=== PATIENT | female | born 1940 | race Caucasian/White ===

== ENCOUNTER 2017-01-02 17:34 | Outpatient (CLI) | payer MEDICARE ==
[2017-01-02 13:30] LABS: BASOPHILS # (AUTO) 0.1 10^3/uL (0.0-0.1); BASOPHILS % (AUTO) 1.2 %; EOSINOPHILS # (AUTO) 0.1 10^3/uL (0.0-0.7); EOSINOPHILS % (AUTO) 1.5 %; HCT - HEMATOCRIT 30.5 % (37.0-47.0); HGB - HEMOGLOBIN 10.1 g/dL (12.0-16.0); LYMPHOCYTES # (AUTO) 0.6 10^3/uL (1.5-3.5); LYMPHOCYTES % (AUTO) 10.8 %; MEAN CORPUSCULAR HEMOGLOBIN 29.4 pg (27.0-31.0); MEAN CORPUSCULAR HGB CONC 33.1 g/dL (32.0-36.0); MEAN CORPUSCULAR VOLUME 88.7 fL (81.0-99.0); MEAN PLATELET VOLUME 7.5 fL (7.9-10.8); MONOCYTES # (AUTO) 0.5 10^3/uL (0.0-1.0); MONOCYTES % (AUTO) 9.1 %; NEUTROPHILS # (AUTO) 4.3 10^3/uL (1.5-6.6); NEUTROPHILS % (AUTO) 77.4 %; RED BLOOD COUNT 3.44 10^6/uL (4.20-5.40); RED CELL DISTRIBUTION WIDTH 14.5 % (12.0-15.0); UNCORRECTED WHITE BLOOD COUNT 5.5 x10^3/uL; WHITE BLOOD COUNT 5.5 x10^3/uL (4.8-10.8)
[2017-01-02 13:38] LABS: ALBUMIN/GLOBULIN RATIO 1.3 (1.0-2.2); BILIRUBIN,TOTAL 0.4 mg/dL (0.2-1.0); BUN - BLOOD UREA NITROGEN 15 mg/dL (6-20); CALCIUM 8.5 mg/dL (8.5-10.3); CARBON DIOXIDE - CO2 25 mmol/L (21-32); CHLORIDE 103 mmol/L (101-111); CHOL/HDL RATIO 2.8 (<4.4); CHOLESTEROL 171 mg/dL; CREATININE 0.6 mg/dL (0.4-1.0); GFR - MDRD 97 (>89); GLUCOSE 101 mg/dL (70-100); HDL CHOLESTEROL 62 mg/dL; LDL/HDL RATIO 1.6 (<4.4); POTASSIUM 4.2 mmol/L (3.5-5.0); SODIUM 131 mmol/L (135-145); TOTAL PROTEIN 6.2 g/dL (6.7-8.2); TRIGLYCERIDES 61 mg/dL; VLDL CHOLESTEROL 12 mg/dL
[2017-01-02 13:53] LABS: THYROID STIMULATING HORMONE 6.11 uIU/mL (0.34-5.60)
== END 2017-01-02 17:35 | disposition home or self-care (01) ==
LOC: LAB.WCP 17:34
PROVIDERS: ATTEND Family Medicine
DX: D64.9 Anemia, unspecified (principal); G47.00 Insomnia, unspecified; R53.83 Other fatigue; G47.30 Sleep apnea, unspecified; I10 Essential (primary) hypertension
CPT/HCPCS: 36415; 80053; 80061; 84439; 84443; 85025

== ENCOUNTER 2017-01-25 11:10 | Emergency (ER) | payer MEDICARE ==
[2017-01-25 12:47] LABS: BILIRUBIN,URINE NEGATIVE (NEGATIVE)
[2017-01-25 12:59] LABS: UA CHARGE (STRIP ONLY) YES
[2017-01-25] MEDS ORDERED: SODIUM CHLORIDE 0.9% 1,000 ML IV ONE (13:54)
[2017-01-25 14:14] LABS: BASOPHILS # (AUTO) 0.1 10^3/uL (0.0-0.1); BASOPHILS % (AUTO) 0.7 %; EOSINOPHILS # (AUTO) 0.1 10^3/uL (0.0-0.7); EOSINOPHILS % (AUTO) 0.7 %; HCT - HEMATOCRIT 28.5 % (37.0-47.0); HGB - HEMOGLOBIN 9.7 g/dL (12.0-16.0); LYMPHOCYTES # (AUTO) 0.7 10^3/uL (1.5-3.5); LYMPHOCYTES % (AUTO) 9.3 %; MEAN CORPUSCULAR HEMOGLOBIN 29.1 pg (27.0-31.0); MEAN CORPUSCULAR VOLUME 85.5 fL (81.0-99.0); MEAN PLATELET VOLUME 6.6 fL (7.9-10.8); MONOCYTES # (AUTO) 0.6 10^3/uL (0.0-1.0); MONOCYTES % (AUTO) 7.8 %; NEUTROPHILS # (AUTO) 5.9 10^3/uL (1.5-6.6); NEUTROPHILS % (AUTO) 81.5 %; RED BLOOD COUNT 3.34 10^6/uL (4.20-5.40); UNCORRECTED WHITE BLOOD COUNT 7.2 x10^3/uL; WHITE BLOOD COUNT 7.2 x10^3/uL (4.8-10.8)
[2017-01-25 14:27] LABS: ALBUMIN/GLOBULIN RATIO 1.3 (1.0-2.2); BILIRUBIN,TOTAL 0.2 mg/dL (0.2-1.0); CALCIUM 8.9 mg/dL (8.5-10.3); CREATININE 0.5 mg/dL (0.4-1.0); POTASSIUM 4.5 mmol/L (3.5-5.0); TOTAL PROTEIN 6.2 g/dL (6.7-8.2)
--- NOTE | 2017-01-25 17:16 | ED Physician Documentation ---
History of Present Illness - Stated complaint Stated Complaint: NAUSEA/WEAKNESS - Chief complaint Chief Complaint: General - History obtained from History obtained from: Patient - History of Present Illness Timing: Today - Additonal information Additional information: 76-year-old female has who has had an issue with weakness and fatigue for the past 2 weeks was hydrated 2 days ago at [facility] in [place] and she felt somewhat better for the day after. She is also been started on an increased dose of her Synthroid. She comes in today with recurrence of weakness. She reports that she has not been feeling well since her 3 and half years ago. She has some difficulty with sleep onset and insomnia and has had a number of different sleeping medications.She is unaware of any prior diagnosis of anemia. Review of Systems Constitutional: reports: Myalgias, Fatigue, Weight Loss, Sweats. denies: Fever Ears: denies: Ear pain Throat: denies: Sore throat GI: reports: Abdominal Pain, Nausea, Diarrhea : denies: Dysuria, Frequency Skin: denies: Rash Musculoskeletal: denies: Neck pain, Back pain, Extremity pain Neurologic: reports: Generalized weakness. denies: Focal weakness, Numbness Psychiatric: reports: Depressed, Insomnia PD PAST MEDICAL HISTORY - Past Medical History Cardiovascular: Murmur Respiratory: Asthma, Sleep apnea, CPAP use Neuro: None Musculoskeletal: Osteoarthritis - Past Surgical History Past Surgical History: Yes Ortho: Spine surgery - Present Medications Home Medications: Ambulatory Orders Medication Instructions Recorded Confirmed Aspirin [Aspir 81] 1 tab DAILY 08/23/14 01/25/17 Clonazepam 1 tab QPM 08/23/14 01/25/17 Glucosamine Sulfate Dipot Chlr 1 tab BID 08/23/14 01/25/17 [Glucosamine] Levothyroxine [Synthroid] 1 tab DAILY 08/23/14 01/25/17 Loratadine [Claritin] 1 tab DAILY 08/23/14 01/25/17 Losartan [Cozaar] 1 tab BID 08/23/14 01/25/17 Miller-3 Fatty Acids/Fish Oil 2 tab DAILY 08/23/14 01/25/17 [Miller 3 1,000 mg Softgel] PARoxetine [Paxil] 20 mg DAILY 08/23/14 01/25/17 traZODone [Desyrel] 1 - 2 tab QPM 04/14/15 09/16/17 - Allergies Allergies/Adverse Reactions: Allergies Allergy/AdvReac Type Severity Reaction Status Date / Time No Known Drug Allergies Allergy Verified 08/23/14 09:31 - Social History Does the pt smoke?: No Smoking Status: Never smoker Does the pt drink ETOH?: Yes Does the pt have substance abuse?: No PD ED PE NORMAL - Vitals Vital signs reviewed: Yes (hypertensive ) - General General: Alert and oriented X 3, No acute distress, Well developed/nourished - HEENT HEENT: Atraumatic, PERRL, EOMI, Other (mucous membranes are dry) - Neck Neck: Supple, no meningeal sign, No bony TTP - Cardiac Cardiac: RRR, Other (2/6 holosystolic murmer at [facility]) - Respiratory Respiratory: No respiratory distress, Clear bilaterally - Abdomen Abdomen: Soft, Non tender - Back Back: No CVA TTP, No spinal TTP - Derm Derm: Normal color, Warm and dry, No rash - Extremities Extremities: No deformity, No edema - Neuro Neuro: Alert and oriented X 3, No motor deficit, No sensory deficit, Normal speech - Psych Psych: Normal mood, Normal affect Results - Vitals Vitals: Vital Signs - 24 hr 01/25/17 01/25/17 01/25/17 11:14 14:47 17:33 Temperature 35.6 C L Heart Rate 64 58 L 60 Respiratory 18 12 16 Rate Blood Pressure 140/69 H 166/79 H 144/68 H O2 Saturation 100 100 95 Oxygen O2 Source Room air - Labs Labs: Laboratory Tests 01/25/17 01/25/17 01/25/17 12:40 14:07 14:07 WBC 7.2 RBC 3.34 L Hgb 9.7 L Hct 28.5 L MCV 85.5 MCH 29.1 MCHC 34.0 RDW 14.0 Plt Count 354 MPV 6.6 L Neut # 5.9 Lymph # 0.7 L Spink # 0.6 Eos # 0.1 Baso # 0.1 Absolute Nucleated RBC 0.00 Nucleated RBCs 0.0 Sodium 130 L Potassium 4.5 Chloride 99 L Carbon Dioxide 24 Anion Gap 7.0 BUN 12 Creatinine 0.5 Estimated GFR (MDRD) 120 Glucose 104 H Calcium 8.9 Total Bilirubin 0.2 AST 23 ALT 21 Alkaline Phosphatase 69 Troponin I Total Protein 6.2 L Albumin 3.5 Globulin 2.7 Albumin/Globulin Ratio 1.3 Lipase 31 TSH Urine Color YELLOW Urine Clarity CLEAR Urine pH 7.0 Ur Specific [place] 1.010 Urine Protein NEGATIVE Urine Glucose (UA) NEGATIVE Urine Ketones NEGATIVE Urine Occult Blood NEGATIVE Urine Nitrite NEGATIVE Urine Bilirubin NEGATIVE Urine Urobilinogen 0.2 (NORMAL) Ur Leukocyte Esterase NEGATIVE Ur Microscopic Review NOT INDICATED 01/25/17 01/25/17 14:07 14:07 WBC RBC Hgb Hct MCV MCH MCHC RDW Plt Count MPV Neut # Lymph # Spink # Eos # Baso # Absolute Nucleated RBC Nucleated RBCs Sodium Potassium Chloride Carbon Dioxide Anion Gap BUN Creatinine Estimated GFR (MDRD) Glucose Calcium Total Bilirubin AST ALT Alkaline Phosphatase Troponin I < 0.04 Total Protein Albumin Globulin Albumin/Globulin Ratio Lipase TSH 2.25 Urine Color Urine Clarity Urine pH Ur Specific [place] Urine Protein Urine Glucose (UA) Urine Ketones Urine Occult Blood Urine Nitrite Urine Bilirubin Urine Urobilinogen Ur Leukocyte Esterase Ur Microscopic Review Procedures - IVC sono (time) 1150 Bedside IVC sono: IVC measures (cm) (1.48), IVC collapsed c insp (cm) (complete) , Dehydration (mild dehydration.) PD MEDICAL DECISION MAKING - ED course Complexity details: reviewed old records, reviewed results, re-evaluated patient , considered differential, d/w patient, d/w family ED course: 76 y/o female with weakness and nausea is found to be dehydrated on interrogation of the IVC. The level of dehydration is mild with complete collapse the only clue. She is hydrated with 1 liter of saline and the main finding on lab testing today is an anemia with a Hct of 28.5. We have values to 30.8 from 2 years ago with normal indicies. I have asked the patient to follow up with her primary for further evaluation of the anemia. Her thyroid function appears normal today. Departure - Departure Disposition: 01 Home, Self Care Clinical Impression: Dehydration Anemia Qualifiers: Anemia type: unspecified type Qualified Code(s): D64.9 - Anemia, unspecified Condition: Stable Instructions: ED Dehydration, ED Anemia Type Not Specified Follow-Up: Sohail Kamara MD [Primary Care Provider] -
[2017-01-25 17:34] VITALS: BP 144/68
== END 2017-01-25 18:22 | disposition home or self-care (01) ==
LOC: ED 11:10
DX: E86.0 Dehydration (principal); D64.9 Anemia, unspecified; Z79.82 Long term (current) use of aspirin
CPT/HCPCS: 36415; 80053; 81001; 81003; 83690; 84443; 84484; 85025; 87086; 99284

== ENCOUNTER 2017-01-31 14:58 | Outpatient (CLI) | payer MEDICARE | END 2017-01-31 14:59 | disposition home or self-care (01) | LOC: LAB.WCP 14:58 | PROVIDERS: ATTEND Family Medicine | DX: D64.9 Anemia, unspecified (principal); R06.00 Dyspnea, unspecified | CPT/HCPCS: 36415; 83880; 84466 ==

== ENCOUNTER 2017-02-03 09:42 | Outpatient (CLI) | payer MEDICARE ==
[~2017-02-03 09:42] MED LIST: IOPAMIDOL-300 100 ML VIAL ONE; IOPAMIDOL-300 50 ML VIAL ONE
[2017-02-03] MEDS ORDERED: IOPAMIDOL-300 100 ML VIAL IVP ONE (10:00)
[2017-02-03] MEDS ORDERED: IOPAMIDOL-300 50 ML VIAL PO ONE (10:01)
--- NOTE | 2017-02-03 12:42 | CT Report ---
CT OF THE ABDOMEN AND PELVIS WITH CONTRAST: 02/03/2017 CLINICAL INDICATION: Anorexia, anemia, pain. TECHNIQUE: Axial CT images of the abdomen and pelvis were obtained with 100 mL of Isovue-300 intraven ously as well as oral contrast. No previous CT is available for comparison. FINDINGS: Limited evaluation of the lung bases is unremarkable. ABDOMEN: The liver, spleen, pancreas, kidneys and adrenal glands are unremarkable. The gallbladder is not dilated. No bowel dilatation, free gas, or free fluid is present. There is a midline lower abdom inal eventration, containing nonobstructed loops of small and large bowel. No free gas, free fluid, o r abdominal adenopathy is present. PELVIS: Eventration continues down to the pubic symphysis. There is questionable wall thickening of t he cecum. Consider correlation with colonoscopy. No pelvic adenopathy or free fluid is present. The osseous structures demonstrate degenerative changes. IMPRESSION: POSSIBLE CECAL WALL THICKENING. CONSIDER CORRELATION WITH COLONOSCOPY. In accordance with CT protocol optimization, one or more of the following dose reduction techniques w ere utilized for this exam: automated exposure control, adjustment of mA and/or KV based on patient size, or use of iterative reconstructive technique. JOB #: [id number] EXT JOB #:[id number]
== END 2017-02-03 09:43 | disposition home or self-care (01) ==
LOC: DI 09:42
PROVIDERS: ATTEND Family Medicine
DX: R63.0 Anorexia (principal); D64.9 Anemia, unspecified; R14.0 Abdominal distension (gaseous)
CPT/HCPCS: 74177; Q9967

== ENCOUNTER 2017-02-20 16:31 | Outpatient (CLI) | payer MEDICARE ==
[2017-02-20 16:56] LABS: BASOPHILS # (AUTO) 0.1 10^3/uL (0.0-0.1); BASOPHILS % (AUTO) 1.1 %; EOSINOPHILS # (AUTO) 0.1 10^3/uL (0.0-0.7); EOSINOPHILS % (AUTO) 1.5 %; HCT - HEMATOCRIT 29.8 % (37.0-47.0); HGB - HEMOGLOBIN 9.7 g/dL (12.0-16.0); IMMATURE RETIC FRACTION 0.43; LYMPHOCYTES # (AUTO) 0.7 10^3/uL (1.5-3.5); LYMPHOCYTES % (AUTO) 11.7 %; MEAN CORPUSCULAR HEMOGLOBIN 27.4 pg (27.0-31.0); MEAN CORPUSCULAR HGB CONC 32.4 g/dL (32.0-36.0); MEAN CORPUSCULAR VOLUME 84.4 fL (81.0-99.0); MEAN PLATELET VOLUME 6.5 fL (7.9-10.8); MONOCYTES # (AUTO) 0.5 10^3/uL (0.0-1.0); MONOCYTES % (AUTO) 8.4 %; NEUTROPHILS # (AUTO) 4.9 10^3/uL (1.5-6.6); NEUTROPHILS % (AUTO) 77.3 %; RED BLOOD COUNT 3.53 10^6/uL (4.20-5.40); RED CELL DISTRIBUTION WIDTH 14.4 % (12.0-15.0); UNCORRECTED WHITE BLOOD COUNT 6.3 x10^3/uL; WHITE BLOOD COUNT 6.3 x10^3/uL (4.8-10.8)
[2017-02-20 17:16] LABS: IRON 16 ug/dL (28-170); TOTAL IRON BINDING CAPACITY 421 ug/dL (250-450); TRANSFERRIN 301 mg/dL (192-382)
== END 2017-02-20 16:32 | disposition home or self-care (01) ==
LOC: LAB 16:31
PROVIDERS: ATTEND Surgery
DX: D64.9 Anemia, unspecified (principal)
CPT/HCPCS: 36415; 82607; 82728; 83540; 84466; 85025; 85044

== ENCOUNTER 2017-03-03 08:00 | Outpatient (CLI) | payer MEDICARE | END 2017-03-03 08:01 | disposition home or self-care (01) | LOC: LAB.R 08:00 | PROVIDERS: ATTEND Surgery | DX: D64.9 Anemia, unspecified (principal) | CPT/HCPCS: 82270 ==

== ENCOUNTER 2017-03-07 07:43 | Day surgery (SDC) | payer MEDICARE ==
[~2017-03-07 07:43] MED LIST changes: +BENZOCAINE/TETRACAINE/BUTAMBEN SPRAY 56 GM TOP ONE; -IOPAMIDOL-300 100 ML VIAL ONE; -IOPAMIDOL-300 50 ML VIAL ONE
[2017-03-07] MEDS ORDERED: LACTATED RINGERS 1,000 ML IV ONE (08:15)
[2017-03-07] MEDS ORDERED: BENZOCAINE/TETRACAINE/BUTAMBEN SPRAY 56 GM TOP ONE (09:29)
[2017-03-07] MEDS ORDERED: MIDAZOLAM 2 MG/2 ML VIAL IVP ONE (09:30)
[2017-03-07] MEDS ORDERED: KETAMINE 500 MG/10 ML VIAL IVP ONE (09:30)
[2017-03-07] MEDS ORDERED: GLYCOPYRROLATE 1 MG/5 ML VIAL IVP ONE (09:30)
[2017-03-07] MEDS ORDERED: PROPOFOL 200 MG/20 ML VIAL IVP ONE (09:30)
[2017-03-07] MEDS ORDERED: LIDOCAINE 2% 20 ML MDV ID ONE (09:30)
[2017-03-07 11:13] VITALS: BP 122/78
== END 2017-03-07 07:44 | disposition home or self-care (01) ==
LOC: SDS 07:43
PROVIDERS: ATTEND Surgery
PROC: 0DB68ZX Excision of Stomach, Via Natural or Artificial Opening Endoscopic, Diagnostic (ICD-10-PCS; principal; 2017-03-07 09:00)
PROC: 0DBK8ZX Excision of Ascending Colon, Via Natural or Artificial Opening Endoscopic, Diagnostic (ICD-10-PCS; 2017-03-07 09:00)
DX: C18.0 Malignant neoplasm of cecum (principal); K29.71 Gastritis, unspecified, with bleeding; D64.9 Anemia, unspecified; K64.4 Residual hemorrhoidal skin tags; D12.2 Benign neoplasm of ascending colon; I10 Essential (primary) hypertension; E03.9 Hypothyroidism, unspecified; Z87.891 Personal history of nicotine dependence; G47.30 Sleep apnea, unspecified; Z79.82 Long term (current) use of aspirin
CPT/HCPCS: 43239; 45380; A9270; J7120

== ENCOUNTER 2017-03-26 14:32 | Outpatient (CLI) | payer MEDICARE | END 2017-03-26 14:33 | disposition home or self-care (01) | LOC: LAB 14:32 | PROVIDERS: ATTEND Surgery | DX: Z01.812 Encounter for preprocedural laboratory examination (principal); C18.9 Malignant neoplasm of colon, unspecified; K43.9 Ventral hernia without obstruction or gangrene | CPT/HCPCS: 36415; 85025; 86850; 86900; 86901; 86920 ==

== ENCOUNTER 2017-03-26 14:36 | Outpatient (CLI) | payer MEDICARE ==
[2017-03-26 15:14] LABS: BASOPHILS # (AUTO) 0.1 10^3/uL (0.0-0.1); BASOPHILS % (AUTO) 1.2 %; EOSINOPHILS % (AUTO) 0.7 %; HCT - HEMATOCRIT 33.4 % (37.0-47.0); HGB - HEMOGLOBIN 11.2 g/dL (12.0-16.0); LYMPHOCYTES # (AUTO) 0.7 10^3/uL (1.5-3.5); LYMPHOCYTES % (AUTO) 11.5 %; MEAN CORPUSCULAR HEMOGLOBIN 29.5 pg (27.0-31.0); MEAN CORPUSCULAR HGB CONC 33.6 g/dL (32.0-36.0); MEAN CORPUSCULAR VOLUME 87.7 fL (81.0-99.0); MEAN PLATELET VOLUME 6.6 fL (7.9-10.8); MONOCYTES # (AUTO) 0.6 10^3/uL (0.0-1.0); NEUTROPHILS % (AUTO) 77.6 %; RED BLOOD COUNT 3.81 10^6/uL (4.20-5.40); RED CELL DISTRIBUTION WIDTH 20.5 % (12.0-15.0); UNCORRECTED WHITE BLOOD COUNT 6.5 x10^3/uL; WHITE BLOOD COUNT 6.5 x10^3/uL (4.8-10.8)
[2017-03-26 16:39] LABS: PLATELET ESTIMATE, MANUAL NORMAL (130-450,000) (NORMAL); PLATELET MORPHOLOGY NORMAL APPEARANCE (NORMAL); WBC MORPHOLOGY (MULTIPLE) NORMAL APPEARANCE (NORMAL)
== END 2017-03-26 14:37 | disposition home or self-care (01) ==
LOC: LAB 14:36
PROVIDERS: ATTEND Nurse Anesthetist, Certified Registered
DX: Z01.812 Encounter for preprocedural laboratory examination (principal); C18.9 Malignant neoplasm of colon, unspecified; K43.6 Other and unspecified ventral hernia with obstruction, without gangrene
CPT/HCPCS: 36415; 85025

== ENCOUNTER 2017-03-28 09:36 | Inpatient (IN) | payer MEDICARE ==
[~2017-03-28 09:36] MED LIST changes: -BENZOCAINE/TETRACAINE/BUTAMBEN SPRAY 56 GM TOP ONE; +ERTAPENEM 1 GM VIAL ONE
[2017-03-28] MEDS ORDERED: LACTATED RINGERS 1,000 ML IV ONE ×3 (10:30→15:00)
[2017-03-28] MEDS ORDERED: ERTAPENEM 1 GM VIAL ONE (11:54)
[2017-03-28] MEDS ORDERED: PROPOFOL 200 MG/20 ML VIAL IVP ONE (16:00)
[2017-03-28] MEDS ORDERED: ROCURONIUM 50 MG/5 ML VIAL IVP ONE (16:00)
[2017-03-28] MEDS ORDERED: fent/BUPIV 2 MCG/0.125% 250 ML EP ONE (16:00)
[2017-03-28] MEDS ORDERED: ONDANSETRON 4 MG/2 ML VIAL IVP PRN ×2 (16:05→16:32)
[2017-03-28] MEDS ORDERED: NALBUPHINE 20 MG/ML AMP IVP PRN ×2 (16:05→16:35)
[2017-03-28] MEDS ORDERED: fent/BUPIV 2 MCG/0.125% 250 ML EP PRN ×2 (16:05→16:35)
[2017-03-28] MEDS ORDERED: diphenhydrAMINE INJ 50 MG/ML VIAL IVP PRN ×2 (16:05→16:35)
[2017-03-28] MEDS ORDERED: SODIUM CHLORIDE FLUSH 0.9% 10 ML SYRINGE IVP PRN (16:32)
[2017-03-28] MEDS ORDERED: ALBUTEROL NEB 2.5 MG/3 ML INH SCH (16:44)
[2017-03-28] MEDS: ONDANSETRON 4 MG/2 ML VIAL IVP PRN (17:17)
[2017-03-28] MEDS: D5NS W/20 MEQ KCL 1,000 ML IV SCH (17:17)
[2017-03-28 18:15] LABS: HCT - HEMATOCRIT 32.5 % (37.0-47.0); HGB - HEMOGLOBIN 10.7 g/dL (12.0-16.0)
[2017-03-28] MEDS ORDERED: BUDESONIDE 0.5 MG/2 ML NEB INH SCH (19:00)
[2017-03-28] MEDS ORDERED: ACETAMINOPHEN 1,000 MG/100 ML 100 ML IV ONE (19:03)
[2017-03-28] MEDS: ACETAMINOPHEN 1,000 MG/100 ML 100 ML IV SCH (20:01)
[2017-03-28] MEDS: BUDESONIDE 0.5 MG/2 ML NEB INH SCH (20:41)
[2017-03-28] MEDS: ALBUTEROL NEB 2.5 MG/3 ML INH SCH (20:41)
[2017-03-28] MEDS: FAMOTIDINE 20 MG/50 ML 50 ML IV SCH (21:31)
[2017-03-28] MEDS: LOSARTAN 50 MG TABLET PO SCH (21:31)
[2017-03-29] MEDS: SODIUM CHLORIDE FLUSH 0.9% 10 ML SYRINGE IVP SCH ×3 (00:37→14:32)
[2017-03-29] MEDS: ACETAMINOPHEN 1,000 MG/100 ML 100 ML IV SCH ×4 (02:02→20:03)
[2017-03-29 05:15] LABS: CALCIUM 8.3 mg/dL (8.5-10.3); CREATININE 0.7 mg/dL (0.4-1.0); POTASSIUM 3.8 mmol/L (3.5-5.0)
[2017-03-29 05:16] LABS: BASOPHILS % (AUTO) 0.5 %; EOSINOPHILS % (AUTO) 0.1 %; HCT - HEMATOCRIT 30.1 % (37.0-47.0); HGB - HEMOGLOBIN 9.8 g/dL (12.0-16.0); LYMPHOCYTES # (AUTO) 0.4 10^3/uL (1.5-3.5); LYMPHOCYTES % (AUTO) 5.6 %; MEAN CORPUSCULAR HEMOGLOBIN 29.2 pg (27.0-31.0); MEAN CORPUSCULAR HGB CONC 32.4 g/dL (32.0-36.0); MEAN CORPUSCULAR VOLUME 90.3 fL (81.0-99.0); MEAN PLATELET VOLUME 6.8 fL (7.9-10.8); MONOCYTES # (AUTO) 0.6 10^3/uL (0.0-1.0); MONOCYTES % (AUTO) 7.7 %; NEUTROPHILS # (AUTO) 6.4 10^3/uL (1.5-6.6); NEUTROPHILS % (AUTO) 86.1 %; RED BLOOD COUNT 3.34 10^6/uL (4.20-5.40); UNCORRECTED WHITE BLOOD COUNT 7.5 x10^3/uL; WHITE BLOOD COUNT 7.5 x10^3/uL (4.8-10.8)
[2017-03-29 05:55] LABS: PLATELET ESTIMATE, MANUAL NORMAL (130-450,000) (NORMAL); PLATELET MORPHOLOGY NORMAL APPEARANCE (NORMAL)
[2017-03-29] MEDS: BUDESONIDE 0.5 MG/2 ML NEB INH SCH ×2 (07:15→19:08)
[2017-03-29] MEDS: ALBUTEROL NEB 2.5 MG/3 ML INH SCH ×2 (07:15→19:07)
[2017-03-29] MEDS: D5NS W/20 MEQ KCL 1,000 ML IV SCH (08:11)
[2017-03-29] MEDS: SACCHAROMYCES BOULARDII 250 MG CAPSULE PO SCH (08:36)
[2017-03-29] MEDS: LEVOTHYROXINE 25 MCG TABLET PO SCH (08:36)
[2017-03-29] MEDS: LORATADINE 10 MG TABLET PO SCH (08:36)
[2017-03-29] MEDS: FLUTICASONE NASAL SPRAY NAS SCH (09:06)
[2017-03-29] MEDS: FAMOTIDINE 20 MG/50 ML 50 ML IV SCH ×2 (09:08→20:52)
[2017-03-29] MEDS: LOSARTAN 50 MG TABLET PO SCH ×2 (09:41→20:52)
[2017-03-29] MEDS: ceFAZolin 1 GM in SODIUM CHLORIDE 0.9% MINIBAG 100 ML IV SCH ×2 (10:44→18:05)
[2017-03-29] MEDS: ONDANSETRON 4 MG/2 ML VIAL IVP PRN ×2 (12:58→18:54)
[2017-03-29 13:04] LABS: HCT - HEMATOCRIT 29.8 % (37.0-47.0)
[2017-03-29] MEDS: fent/BUPIV 2 MCG/0.125% 250 ML EP PRN (14:45)
[2017-03-29] MEDS: TEMAZEPAM 15 MG CAPSULE PO PRN (22:01)
--- NOTE | 2017-03-29 23:29 | PROVIDER PROGRESS NOTE ---
Subjective - General Admit Date: 03/28/17 Procedure Date: 03/28/17 Post Op Days: 1 - Review of Systems General: positive: No symptoms (pain control with epidural) Gastrointestinal: positive: No symptoms, Other (no flatus or bowel movement) Objective - Patient Data Vital Signs: Vital Signs x48h Temp Pulse Pulse Resp BP Pulse Ox 03/29/17 22:00 68 16 140/63 H 03/29/17 21:00 67 15 151/76 H 03/29/17 20:00 36.8 C 74 20 153/71 H 96 03/29/17 19:56 36.7 C 71 14 157/67 H 96 03/29/17 19:05 60 12 03/29/17 19:00 63 15 165/81 H 03/29/17 18:00 62 16 137/73 H 97 03/29/17 17:00 64 17 03/29/17 16:00 37.0 C 64 20 124/61 Weight: Weight 03/27/17 03/28/17 03/29/17 23:59 23:59 23:59 Weight (kg) 61.1 kg Intake & Output: Intake and Output Totals x24h 03/27/17 03/28/17 03/29/17 23:59 23:59 23:59 Intake Total 238.75 2281.25 Output Total 1663 1563 Balance -1424.25 718.25 - Lab Results Lab Results: 03/29/17 12:57 03/29/17 04:46 Other Lab Results: Lab Results x24hrs 03/29/17 03/29/17 03/29/17 Range/Units 12:57 04:46 04:46 WBC 7.5 (4.8-10.8) x10^3/uL RBC 3.34 L (4.20-5.40) 10^6/uL Hgb 10.0 L 9.8 L (12.0-16.0) g/dL Hct 29.8 L 30.1 L (37.0-47.0) % MCV 90.3 (81.0-99.0) fL MCH 29.2 (27.0-31.0) pg MCHC 32.4 (32.0-36.0) g/dL RDW 21.0 H (12.0-15.0) % Plt Count 299 (130-450) 10^3/uL MPV 6.8 L (7.9-10.8) fL Neut # 6.4 (1.5-6.6) 10^3/uL Lymph # 0.4 L (1.5-3.5) 10^3/uL [place] # 0.6 (0.0-1.0) 10^3/uL Eos # 0.0 (0.0-0.7) 10^3/uL Baso # 0.0 (0.0-0.1) 10^3/uL Absolute Nucleated RBC 0.00 x10^3/uL Nucleated RBC % 0.0 /100WBC Manual Slide Review Indicated Platelet Estimate NORMAL (130-450,000) (NORMAL) Platelet Morphology NORMAL APPEARANCE (NORMAL) RBC Morph Micro Appear 1+ HYPOCHROMASIA (NORMAL) Sodium 137 (135-145) mmol/L Potassium 3.8 (3.5-5.0) mmol/L Chloride 104 (101-111) mmol/L Carbon Dioxide 25 (21-32) mmol/L Anion Gap 8.0 (6-13) BUN 7 (6-20) mg/dL Creatinine 0.7 (0.4-1.0) mg/dL Estimated GFR (MDRD) 81 L (>89) Glucose 155 H (70-100) mg/dL Calcium 8.3 L (8.5-10.3) mg/dL - Current Medications Current Medications: Current Medications Generic Name Dose Route Start Last Admin Trade Name Freq PRN Reason Stop Dose Admin Albuterol 2.5 mg 03/28/17 19:00 03/29/17 19:07 INH 2.5 mg RTBID CALI Administration Budesonide 0.5 mg 03/28/17 19:00 03/29/17 19:08 Pulmicort INH 0.5 mg RTBID CALI Administration Fluticasone Propionate 1 sprays 03/29/17 09:00 03/29/17 09:06 Flonase MEGHANA 2 spr DAILY CALI Administration Potassium Chloride/Dextrose/Sod Cl 1,000 mls @ 75 mls/hr 03/28/17 17:00 03/29 08:11 IV 75 mls/hr .[id number] CALI Administration Famotidine 50 mls @ 100 mls/hr 03/28/17 21:00 03/29/17 20:52 Pepcid 20 Mg/50 Ml IV 100 mls/hr BID CALI Administration Acetaminophen 100 mls @ 400 mls/hr 03/28/17 20:00 03/29/17 20:03 Ofirmev IV 03/29/17 23:59 400 mls/hr Q6H CALI Administration Fentanyl/Bupivacaine/Sodium Chlor 250 mls @ 0 mls/hr 03/28/17 19:22 03/29/17 14:45 Fent/Bupiv 2 Mcg/0.125% EP 10 mls/hr .Q0M PRN Administration PAIN Protocol Per Protocol Cefazolin Sodium 1 gm/ Sodium 100 mls @ 200 mls/hr 03/29/17 10:00 03/29/17 18 :35 Chloride IV Infused Q8H CALI Infusion Levothyroxine Sodium 50 mcg 03/29/17 09:00 03/29/17 08:36 Synthroid PO 50 mcg DAILY CALI Administration Loratadine 10 mg 03/29/17 09:00 03/29/17 08:36 Claritin PO 10 mg DAILY CALI Administration Losartan Potassium 50 mg 03/28/17 21:00 03/29/17 20:52 Cozaar PO 50 mg BID CALI Administration Ondansetron HCl 4 mg 03/28/17 16:35 03/29/17 18:54 Zofran Inj IVP 4 mg Q6HR PRN Administration Nausea / Vomiting Saccharomyces Boulardii 250 mg 03/29/17 09:00 03/29/17 08:36 Florastor PO 250 mg DAILY CALI Administration Sodium Chloride 10 ml 03/28/17 22:00 03/29/17 14:32 Normal Saline Flush 0.9% IVP Not Given Q8HR [facility] Temazepam 30 mg 03/29/17 11:28 03/29/17 22:01 Restoril PO 30 mg QPM PRN Administration Insomnia - Physical Exam Abdomen: positive: Non-tender (dressings clean) Impression/Plan - Problem List Problem List: s/p right hemicolectomy for colon cancer s/p repair of incarcerated ventral hernia with biological mesh POD#1 BP better. Low bp most likely secondary to epidural. Continue to observe for now. HGB down slightly. continue to follow Continue nanette drains Mobilize patient Start ancef for mesh prophylaxis with drains are in place. Continue npo,iv fluids.
[2017-03-30] MEDS: D5NS W/20 MEQ KCL 1,000 ML IV SCH ×3 (00:24→14:45)
[2017-03-30] MEDS: SODIUM CHLORIDE FLUSH 0.9% 10 ML SYRINGE IVP SCH ×4 (00:25→20:21)
[2017-03-30] MEDS ORDERED: SODIUM CHLORIDE 0.9% MINIBAG 100 ML IV ONE (01:52)
[2017-03-30] MEDS: ceFAZolin 1 GM in SODIUM CHLORIDE 0.9% MINIBAG 100 ML IV SCH ×3 (01:58→18:16)
[2017-03-30] MEDS: ALBUTEROL NEB 2.5 MG/3 ML INH SCH ×2 (07:18→16:44)
[2017-03-30] MEDS: BUDESONIDE 0.5 MG/2 ML NEB INH SCH ×2 (07:18→16:44)
[2017-03-30] MEDS: FAMOTIDINE 20 MG/50 ML 50 ML IV SCH ×2 (08:40→20:17)
[2017-03-30] MEDS: SACCHAROMYCES BOULARDII 250 MG CAPSULE PO SCH (08:44)
[2017-03-30] MEDS: LORATADINE 10 MG TABLET PO SCH (08:47)
[2017-03-30] MEDS: LEVOTHYROXINE 25 MCG TABLET PO SCH (08:47)
[2017-03-30] MEDS: FLUTICASONE NASAL SPRAY NAS SCH (08:47)
[2017-03-30] MEDS: LOSARTAN 50 MG TABLET PO SCH ×2 (08:48→20:18)
[2017-03-30 08:53] LABS: BASOPHILS % (AUTO) 0.5 %; EOSINOPHILS # (AUTO) 0.1 10^3/uL (0.0-0.7); EOSINOPHILS % (AUTO) 1.5 %; HGB - HEMOGLOBIN 10.6 g/dL (12.0-16.0); LYMPHOCYTES # (AUTO) 0.5 10^3/uL (1.5-3.5); LYMPHOCYTES % (AUTO) 7.8 %; MEAN CORPUSCULAR HEMOGLOBIN 29.8 pg (27.0-31.0); MEAN CORPUSCULAR HGB CONC 33.2 g/dL (32.0-36.0); MEAN CORPUSCULAR VOLUME 89.8 fL (81.0-99.0); MEAN PLATELET VOLUME 6.9 fL (7.9-10.8); MONOCYTES # (AUTO) 0.5 10^3/uL (0.0-1.0); NEUTROPHILS # (AUTO) 5.6 10^3/uL (1.5-6.6); NEUTROPHILS % (AUTO) 82.2 %; RED BLOOD COUNT 3.57 10^6/uL (4.20-5.40); RED CELL DISTRIBUTION WIDTH 20.9 % (12.0-15.0); UNCORRECTED WHITE BLOOD COUNT 6.8 x10^3/uL; WHITE BLOOD COUNT 6.8 x10^3/uL (4.8-10.8)
[2017-03-30 10:03] LABS: PLATELET ESTIMATE, MANUAL NORMAL (130-450,000) (NORMAL); PLATELET MORPHOLOGY NORMAL APPEARANCE (NORMAL)
[2017-03-30 10:04] LABS: WBC MORPHOLOGY (MULTIPLE) NORMAL APPEARANCE (NORMAL)
[2017-03-30] MEDS: fent/BUPIV 2 MCG/0.125% 250 ML EP PRN (14:27)
--- NOTE | 2017-03-30 15:16 | OPERATIVE REPORT ---
DATE OF SURGERY: 03/28/2017 00:00:00 PREOPERATIVE DIAGNOSES 1. Right colon cancer. 2. Incarcerated ventral incisional hernia. POSTOPERATIVE DIAGNOSES 1. Right colon cancer. 2. Incarcerated ventral incisional hernia. NAME OF PROCEDURE 1. Right hemicolectomy. 2. Repair of incarcerated ventral incisional hernia with [place] Bio-A biological mesh placed in the underlay position. SURGEON: Oswaldo Hill MD ANESTHESIA: General, Dr. Alonzo INDICATION FOR PROCEDURE: The patient is a 76-year-old female who presented with anemia. She underwent a colonoscopy and was found to have a mass in the right colon. Biopsy of this revealed adenocarcinoma. On physical exam, she had an incarcerated ventral incisional hernia. Due to the wide distance between the rectus muscles, the repair needed to be performed with a mesh. FINDINGS AT SURGERY: The patient had a large mass being present in the proximal right colon. Omentum was attached to this mass and was resected en bloc. There did not appear to be any liver lesions being palpable. There were no other lesions noted intraabdominally. There were some mildly enlarged lymph nodes in mesentery of the right colon. The patient had a large, incarcerated ventral incisional hernia. This went from around the umbilicus to almost the pubic bone. Because the case was clean contaminated, I did not feel appropriate to place synthetic mesh as it would have a significant chance of infection. Therefore, the hernia was repaired with [place] Bio-A biosynthetic mesh 20 x 20 cm , placed in an underlay fashion. She did not have very much subcutaneous tissue and I would be concerned about skin necrosis if placed in an overlay fashion. I did not feel that given her age and already undergoing the colon resection that placing it in the retrorectus space would also be appropriate. I was able to close the fascia in the midline with, as stated, the mesh being placed in the underlay fashion. PROCEDURE: After informed consent was obtained, the patient taken to the operating room, placed in supine position. General endotracheal anesthesia administered. The patient's abdomen was then prepped and draped in usual sterile fashion. Midline abdominal scar was then excised. The skin was then incised, carrying it to the hernia sac, which was then opened. There were some adhesions of the small bowel to the hernia sac, which were divided with scissors sharply. The rest of the hernia sac was then opened in the midline. The entire fascial defect was then exposed. Attention then turned to the right hemicolectomy. Liver was palpated, no abnormalities were noted. The rest of her abdomen was explored and no significant abnormalities were noted. The ileocolonic vessel was then high ligated by placing clamps proximally and distally along it, then being divided between the clamps. The proximal end was then sutured with an 0 Vicryl suture. The middle colic vessel was then identified and preserved. This was due to the patient having previous rectopexy and possibly having the decreased blood flow through the left colic vessels, if present at all. The right colic vessel was then also ligated proximally and distally, and with it then being divided between the sutures. The position was identified along with the terminal ileum approximately 10 cm from the cecum, where it would be divided. The omentum was then divided off the proximal transverse colon. This was done using LigaSure cautery device. The hepatic flexure was also divided using LigaSure along with the lateral peritoneal fold. This allowed for mobilization of the right colon. A [id number] functional end-to-end anastomosis was then created between the terminal ileum and the proximal to mid transverse colon. This was first done by bringing the terminal ileum next to the transverse colon, where the anastomosis would be performed. Stay sutures, 3- 0 Vicryls, were then placed proximally and distally. An opening was then made in the terminal ileum and transverse colon, with the stapler then being inserted. It was then engaged, creating anastomosis between the 2 bowel lumens. A second NERIS-75 stapling device was then placed across the end, stapling it closed. Feeling the anastomosis, there appeared to be adequate size, with no leak being noted. The mesenteric defect was closed using a running #3-0 Vicryl suture. The specimen had been removed off the surgical field. The abdomen was irrigated, no bleeding was noted. The omentum was then returned to its original location. Attention then turned to repair of the ventral hernia. The patient had a large hernia sac which was then excised from the subcutaneous tissue down to the fascia. The fascia was then well delineated. There was excess skin which was then excised. I felt that the best place for the patient' s current condition was placed in underlay fashion. A 20 x 20 piece of Bio-A [place] biological mesh was then placed intraabdominally. Transfascial fixation sutures using 0 PDS sutures were then placed circumferentially through the fascia, through the mesh and back out through the fascia. This was done after clearing the subcutaneous tissue several centimeters back from the fascial edge. The sutures were then tied. The anterior abdominal fascial layer was then able to be brought together in the midline without significant tension using a running #1 PDS suture. Prior to closing the midline, 2 #19 DEBO drains were placed through the fascia and on top of the mesh. A 15 round DEBO drain was placed through the skin incision and on top of the fascial closure. The skin was then stapled closed and a dry dressing was placed on top. The patient was then awakened, extubated, taken from the operating room in stable condition. ESTIMATED BLOOD LOSS: 100 mL. COMPLICATIONS: None. CONDITION OF THE PATIENT AT END OF PROCEDURE: Stable. SPECIMENS: Right hemicolectomy. DRAINS AND PACKS: Three drains were placed intraabdominally on top of the mesh and subcutaneously. CLASSIFICATION OF WOUND: Clean contaminated. JOB #: [id number] EXT JOB #:[id number]
[2017-03-30] MEDS ORDERED: SODIUM CHLORIDE 0.9% 100ML 100 ML IV ONE (19:47)
[2017-03-30] MEDS: TEMAZEPAM 15 MG CAPSULE PO PRN (20:19)
[2017-03-30] MEDS ORDERED: ACETAMINOPHEN 1,000 MG/100 ML 100 ML IV PRN (21:24)
[2017-03-30] MEDS ORDERED: KETOROLAC 15 MG/ML VIAL IVP ONE (21:30)
--- NOTE | 2017-03-30 23:41 | PROVIDER PROGRESS NOTE ---
Subjective - General Admit Date: 03/28/17 Procedure Date: 03/28/17 Post Op Days: 2 - Review of Systems General: positive: No symptoms (pain control with epidural) Gastrointestinal: positive: No symptoms, Other (no flatus or bowel movement) Objective - Patient Data Vital Signs: Vital Signs x48h Temp Pulse Pulse Resp BP Pulse Ox 03/30/17 21:57 153/73 H 03/30/17 20:00 37.6 C H 67 20 154/74 H 100 03/30/17 16:45 64 20 03/30/17 16:00 36.6 C 70 19 134/74 H 97 Weight: Weight 03/28/17 03/29/17 03/30/17 23:59 23:59 23:59 Weight (kg) 61.1 kg Intake & Output: Intake and Output Totals x24h 03/28/17 03/29/17 03/30/17 23:59 23:59 23:59 Intake Total 238.75 3431.25 3661.25 Output Total 1663 1563 1480 Balance -1424.25 1868.25 2181.25 - Lab Results Lab Results: 03/30/17 08:26 03/29/17 04:46 Other Lab Results: Lab Results x24hrs 03/30/17 Range/Units 08:26 WBC 6.8 (4.8-10.8) x10^3/uL RBC 3.57 L (4.20-5.40) 10^6/uL Hgb 10.6 L (12.0-16.0) g/dL Hct 32.0 L (37.0-47.0) % MCV 89.8 (81.0-99.0) fL MCH 29.8 (27.0-31.0) pg MCHC 33.2 (32.0-36.0) g/dL RDW 20.9 H (12.0-15.0) % Plt Count 280 (130-450) 10^3/uL MPV 6.9 L (7.9-10.8) fL Neut # 5.6 (1.5-6.6) 10^3/uL Lymph # 0.5 L (1.5-3.5) 10^3/uL [place] # 0.5 (0.0-1.0) 10^3/uL Eos # 0.1 (0.0-0.7) 10^3/uL Baso # 0.0 (0.0-0.1) 10^3/uL Absolute Nucleated RBC 0.00 x10^3/uL Nucleated RBC % 0.0 /100WBC Manual Slide Review Indicated WBC Morphology NORMAL APPEARANCE (NORMAL) Platelet Estimate NORMAL (130-450,000) (NORMAL) Platelet Morphology NORMAL APPEARANCE (NORMAL) RBC Morph Micro Appear 1+ POIKILOCYTOSIS (NORMAL) - Current Medications Current Medications: Current Medications Generic Name Dose Route Start Last Admin Trade Name Freq PRN Reason Stop Dose Admin Albuterol 2.5 mg 03/28/17 19:00 03/30/17 16:44 INH 2.5 mg RTBID CALI Administration Budesonide 0.5 mg 03/28/17 19:00 03/30/17 16:44 Pulmicort INH 0.5 mg RTBID CALI Administration Fluticasone Propionate 1 sprays 03/29/17 09:00 03/30/17 08:47 Flonase MEGHANA 2 spr DAILY CALI Administration Potassium Chloride/Dextrose/Sod Cl 1,000 mls @ 75 mls/hr 03/28/17 17:00 03/30 14:45 IV 75 mls/hr .[id number] CALI Administration Famotidine 50 mls @ 100 mls/hr 03/28/17 21:00 03/30/17 20:49 Pepcid 20 Mg/50 Ml IV Infused BID CALI Infusion Fentanyl/Bupivacaine/Sodium Chlor 250 mls @ 0 mls/hr 03/28/17 19:22 03/30/17 14:27 Fent/Bupiv 2 Mcg/0.125% EP 10 mls/hr .Q0M PRN Administration PAIN Protocol Per Protocol Cefazolin Sodium 1 gm/ Sodium 100 mls @ 200 mls/hr 03/29/17 10:00 03/30/17 19 :47 Chloride IV Infused Q8H CALI Infusion Acetaminophen 100 mls @ 400 mls/hr 03/30/17 21:24 03/30/17 22:00 Ofirmev IV 03/31/17 21:30 Infused Q6HR PRN Infusion PAIN Levothyroxine Sodium 50 mcg 03/29/17 09:00 03/30/17 08:47 Synthroid PO 50 mcg DAILY CALI Administration Loratadine 10 mg 03/29/17 09:00 03/30/17 08:47 Claritin PO 10 mg DAILY CALI Administration Losartan Potassium 50 mg 03/28/17 21:00 03/30/17 20:18 Cozaar PO 50 mg BID CALI Administration Ondansetron HCl 4 mg 03/28/17 16:35 03/29/17 18:54 Zofran Inj IVP 4 mg Q6HR PRN Administration Nausea / Vomiting Saccharomyces Boulardii 250 mg 03/29/17 09:00 03/30/17 08:44 Florastor PO 250 mg DAILY CALI Administration Sodium Chloride 10 ml 03/28/17 22:00 03/30/17 20:21 Normal Saline Flush 0.9% IVP Not Given Q8HR [facility] Temazepam 30 mg 03/29/17 11:28 03/30/17 20:19 Restoril PO 30 mg QPM PRN Administration Insomnia - Physical Exam Respiratory: positive: No respiratory distress Cardiovascular: positive: Regular rate & rhythm Abdomen: positive: Non-tender, Other (incisions clean without evidence of infection) Impression/Plan - Problem List Problem List: s/p right hemicolectomy with repair of incarcerated ventral hernia with mesh. awaiting return of bowel function. no evidence of infection continue prophylactic antibiotics for the mesh placement ambulate continue epidural one more day. continue liquids until bowel function returns.
[2017-03-31] MEDS: ceFAZolin 1 GM in SODIUM CHLORIDE 0.9% MINIBAG 100 ML IV SCH ×3 (01:59→17:49)
[2017-03-31] MEDS: HYDROmorphone 0.5 MG/0.5 ML SYRINGE IVP PRN ×2 (02:20→04:34)
[2017-03-31] MEDS: SODIUM CHLORIDE FLUSH 0.9% 10 ML SYRINGE IVP SCH ×3 (02:33→22:01)
[2017-03-31] MEDS: D5NS W/20 MEQ KCL 1,000 ML IV SCH ×2 (04:34→09:25)
[2017-03-31 05:43] LABS: BASOPHILS # (AUTO) 0.1 10^3/uL (0.0-0.1); BASOPHILS % (AUTO) 0.9 %; EOSINOPHILS # (AUTO) 0.3 10^3/uL (0.0-0.7); EOSINOPHILS % (AUTO) 4.8 %; HCT - HEMATOCRIT 30.5 % (37.0-47.0); HGB - HEMOGLOBIN 10.2 g/dL (12.0-16.0); LYMPHOCYTES # (AUTO) 0.9 10^3/uL (1.5-3.5); LYMPHOCYTES % (AUTO) 15.1 %; MEAN CORPUSCULAR HEMOGLOBIN 30.4 pg (27.0-31.0); MEAN CORPUSCULAR HGB CONC 33.5 g/dL (32.0-36.0); MEAN CORPUSCULAR VOLUME 90.7 fL (81.0-99.0); MEAN PLATELET VOLUME 7.1 fL (7.9-10.8); MONOCYTES # (AUTO) 0.5 10^3/uL (0.0-1.0); MONOCYTES % (AUTO) 8.6 %; NEUTROPHILS # (AUTO) 4.1 10^3/uL (1.5-6.6); NEUTROPHILS % (AUTO) 70.6 %; RED BLOOD COUNT 3.36 10^6/uL (4.20-5.40); RED CELL DISTRIBUTION WIDTH 20.7 % (12.0-15.0); UNCORRECTED WHITE BLOOD COUNT 5.8 x10^3/uL; WHITE BLOOD COUNT 5.8 x10^3/uL (4.8-10.8)
[2017-03-31] MEDS: BUDESONIDE 0.5 MG/2 ML NEB INH SCH ×2 (07:30→18:50)
[2017-03-31] MEDS: ALBUTEROL NEB 2.5 MG/3 ML INH SCH ×2 (07:30→18:50)
[2017-03-31] MEDS: FAMOTIDINE 20 MG/50 ML 50 ML IV SCH ×2 (08:53→21:52)
[2017-03-31] MEDS: LEVOTHYROXINE 25 MCG TABLET PO SCH (08:54)
[2017-03-31] MEDS: LOSARTAN 50 MG TABLET PO SCH ×2 (08:54→21:52)
[2017-03-31] MEDS: SACCHAROMYCES BOULARDII 250 MG CAPSULE PO SCH (08:54)
[2017-03-31] MEDS: LORATADINE 10 MG TABLET PO SCH (08:54)
[2017-03-31] MEDS ORDERED: HYDROmorphone 0.5 MG/0.5 ML SYRINGE IVP PRN (09:04)
[2017-03-31] MEDS: HYDROcod/ACETAM 5/325 MG TABLET PO PRN ×2 (09:20→15:07)
[2017-03-31] MEDS: FLUTICASONE NASAL SPRAY NAS SCH (09:55)
[2017-03-31] MEDS: TEMAZEPAM 15 MG CAPSULE PO PRN (22:10)
[2017-04-01] MEDS: ceFAZolin 1 GM in SODIUM CHLORIDE 0.9% MINIBAG 100 ML IV SCH ×3 (01:55→18:03)
[2017-04-01] MEDS: SODIUM CHLORIDE FLUSH 0.9% 10 ML SYRINGE IVP SCH ×2 (06:11→09:45)
[2017-04-01] MEDS ORDERED: MIN OIL/DIMETHICON/COCONUT OIL 92 GM TUBE TOP PRN (07:37)
[2017-04-01] MEDS ORDERED: MIN OIL/DIMETHICON/COCONUT OIL 92 GM TUBE TOP ONE (07:45)
[2017-04-01] MEDS: ALBUTEROL NEB 2.5 MG/3 ML INH SCH ×2 (07:47→17:42)
[2017-04-01] MEDS: BUDESONIDE 0.5 MG/2 ML NEB INH SCH ×2 (07:47→17:43)
[2017-04-01] MEDS: HYDROcod/ACETAM 5/325 MG TABLET PO PRN ×2 (08:08→21:00)
[2017-04-01] MEDS: D5NS W/20 MEQ KCL 1,000 ML IV SCH (08:17)
[2017-04-01] MEDS: LEVOTHYROXINE 25 MCG TABLET PO SCH (09:25)
[2017-04-01] MEDS: FLUTICASONE NASAL SPRAY NAS SCH (09:25)
[2017-04-01] MEDS: LOSARTAN 50 MG TABLET PO SCH ×2 (09:25→21:01)
[2017-04-01] MEDS: SACCHAROMYCES BOULARDII 250 MG CAPSULE PO SCH (09:25)
[2017-04-01] MEDS: LORATADINE 10 MG TABLET PO SCH (09:25)
[2017-04-01] MEDS: FAMOTIDINE 20 MG/50 ML 50 ML IV SCH ×2 (09:25→21:03)
[2017-04-01] MEDS: TEMAZEPAM 15 MG CAPSULE PO PRN (21:02)
[2017-04-02] MEDS: ceFAZolin 1 GM in SODIUM CHLORIDE 0.9% MINIBAG 100 ML IV SCH ×2 (02:38→09:35)
[2017-04-02] MEDS: BUDESONIDE 0.5 MG/2 ML NEB INH SCH (07:42)
[2017-04-02] MEDS: ALBUTEROL NEB 2.5 MG/3 ML INH SCH (07:42)
[2017-04-02] MEDS: LEVOTHYROXINE 25 MCG TABLET PO SCH (08:22)
[2017-04-02] MEDS: LOSARTAN 50 MG TABLET PO SCH (08:23)
[2017-04-02] MEDS: LORATADINE 10 MG TABLET PO SCH (08:23)
[2017-04-02] MEDS: SACCHAROMYCES BOULARDII 250 MG CAPSULE PO SCH (08:23)
[2017-04-02] MEDS: FAMOTIDINE 20 MG/50 ML 50 ML IV SCH (08:57)
[2017-04-02 09:22] VITALS: BP 117/70
[2017-04-02] MEDS: FLUTICASONE NASAL SPRAY NAS SCH (10:15)
--- NOTE | 2017-04-02 12:14 | Discharge Plan ---
Discharge Plan Disposition: Home, Self Care Condition: Good Prescriptions: HYDROcod/ACETAM 5/325 [[place] 5/325] 2 tab PO Q4HR PRN #40 tablet PRN Reason: Pain Diet: Regular Activity Restrictions: no lifting over 15 lbs Shower Restrictions: Yes Driving Restrictions: Yes Weight Bearing: Full Weight Additional Instructions or Follow Up instructions: change drain dressings as needed. May remove lower abdominal dressings 2-3 days. empty, measure and record nanette out separtedly daily. strip drains daily No Smoking: If you smoke, Please STOP! Call for help. Follow-up with: Sohail Kamara MD [Primary Care Provider] - 2 Weeks Oswaldo Hill MD [Provider Admit Priv/Credential] - 04/07/17
[2017-04-02] MEDS: HYDROmorphone 0.5 MG/0.5 ML SYRINGE IVP PRN (12:19)
[2017-04-02] MEDS: HYDROcod/ACETAM 5/325 MG TABLET PO PRN (14:38)
== END 2017-04-02 14:00 | disposition home or self-care (01) | DRG 330 ==
LOC: MS3 09:36 → ICU 14:45
PROVIDERS: ADMIT Surgery; ATTEND Surgery
PROC: 0DTF0ZZ Resection of Right Large Intestine, Open Approach (ICD-10-PCS; principal; 2017-03-28 10:45)
PROC: 0WUF0JZ Supplement Abdominal Wall with Synthetic Substitute, Open Approach (ICD-10-PCS; 2017-03-28 10:45)
DX: C18.0 Malignant neoplasm of cecum (principal); K43.6 Other and unspecified ventral hernia with obstruction, without gangrene; I44.7 Left bundle-branch block, unspecified; G47.30 Sleep apnea, unspecified; D50.9 Iron deficiency anemia, unspecified; E55.9 Vitamin D deficiency, unspecified; E03.9 Hypothyroidism, unspecified; I10 Essential (primary) hypertension; I95.9 Hypotension, unspecified; Z87.891 Personal history of nicotine dependence; Z79.82 Long term (current) use of aspirin
CPT/HCPCS: 36415; 80048; 82378; 85014; 85018; 85025; 87150; 88302; 88305; 88307; 94640

== ENCOUNTER 2017-09-27 14:41 | Emergency (ER) | payer MEDICARE ==
[2017-09-27] MEDS ORDERED: BUFFERED LIDOCAINE 10 ML SYRINGE SUBQ STA (15:17)
--- NOTE | 2017-09-27 15:18 | ED Physician Documentation ---
PD HPI SKIN - Stated complaint Stated Complaint: R ARM RED/SWOLLEN/PX - Chief complaint Chief Complaint: Wound - History obtained from History obtained from: Patient - History of Present Illness Timing - onset: Other (She thinks she had a bug bite while sleeping a few nights ago. She has pain and swelling and redness in the right arm. She was seen by physician 2 days ago and started on clindamycin and has worsened since then with a bigger area of swelling and redness. There is no fever.) Review of Systems Constitutional: denies: Fever, Chills Cardiac: denies: Chest pain / pressure, Palpitations Respiratory: denies: Dyspnea, Cough GI: denies: Abdominal Pain PD PAST MEDICAL HISTORY - Past Medical History Past Medical History: Yes Cardiovascular: Hypertension, Murmur Respiratory: Asthma, Sleep apnea, CPAP use Endocrine/Autoimmune: HyPOthyroidism GI: None : None HEENT: None Psych: None Musculoskeletal: Osteoarthritis Derm: None - Past Surgical History Past Surgical History: Yes General: Colonoscopy, Other Ortho: Spine surgery - Present Medications Home Medications: Ambulatory Orders Medication Instructions Recorded Confirmed Aspirin [Aspir 81] 81 mg PO DAILY 08/23/14 06/23/17 Glucosamine Sulfate Dipot Chlr 1,000 mg PO DAILY 08/23/14 06/23/17 [Glucosamine] Levothyroxine [Synthroid] 50 mcg PO DAILY 08/23/14 06/23/17 Loratadine [Claritin] 10 mg PO DAILY 08/23/14 06/23/17 Losartan [Cozaar] 50 mg PO BID 08/23/14 06/23/17 [place]-3 Fatty Acids/Fish Oil 2 tab PO DAILY 08/23/14 06/23/17 [[place] 3 1,000 mg Softgel] Ascorbic Acid [Vitamin C] 250 mg PO DAILY 03/06/17 06/23/17 Calcium Carbonate/Vitamin D3 1 each PO DAILY 03/06/17 06/23/17 [Calcium 500-Vit D3 200 Tablet] Multivit with Calcium,Iron,Min 1 each PO DAILY 03/06/17 06/23/17 [Multiple Vitamins For Women] Albuterol Sulfate [Proair Hfa 2 puffs INH Q4H PRN 03/27/17 06/23/17 Inhaler] Beclomethasone 80 Mcg [Qvar 80] 2 puffs INH BID 03/27/17 06/23/17 Ferrous Sulfate 325 mg PO DAILY 03/27/17 06/23/17 Fluticasone Propionate 2 spray NS DAILY 03/27/17 06/23/17 Saccharomyces Boulardii [Florastor] 250 mg PO DAILY 03/27/17 06/23/17 Temazepam 30 mg PO DAILY PM 03/27/17 06/23/17 Cyanocobalamin (Vitamin B-12) 1,000 mcg PO DAILY 03/31/17 06/23/17 [Vitamin B-12] Cephalexin [Keflex] 500 mg PO QID #40 capsule 09/27/17 predniSONE [Deltasone] 60 mg PO DAILY 5 Days tablet 09/27/17 - Allergies Allergies/Adverse Reactions: Allergies Allergy/AdvReac Type Severity Reaction Status Date / Time No Known Drug Allergies Allergy Verified 09/27/17 14:54 - Social History Does the pt smoke?: No Smoking Status: Never smoker Does the pt drink ETOH?: Yes Does the pt have substance abuse?: No - Immunizations Immunizations are current?: Yes PD ED PE NORMAL - Vitals Vital signs reviewed: Yes - General General: Alert and oriented X 3, No acute distress - Derm Derm: Other (She has a 3 x 8 cm area of redness, cellulitis versus localized bug bite reaction to the right forearm. On bedside ultrasound there does look to be a fluid collection near the proximal mid part of it.) - Neuro Neuro: Alert and oriented X 3, Normal speech - Psych Psych: Normal mood, Normal affect Results - Vitals Vitals: Vital Signs - 24 hr 09/27/17 14:49 Temperature 36.3 C L Heart Rate 90 Respiratory 14 Rate Blood Pressure 103/61 O2 Saturation 99 Oxygen O2 Source Room air PD MEDICAL DECISION MAKING - ED course ED course: Unclear whether this represents a bug bite or cellulitis or abscess. The area was prepped and locally infiltrated with lidocaine and a tiny incision was made , no purulent material was expressed. Some clearish fluid came out and that was cultured. We will start her on prednisone and Keflex and close follow-up was advised. Departure - Departure Disposition: 01 Home, Self Care Clinical Impression: Cellulitis Qualifiers: Site of cellulitis: extremity Site of cellulitis of extremity: upper extremity Laterality: right Qualified Code(s): L03.113 - Cellulitis of right upper limb Condition: Good Record reviewed to determine appropriate education?: Yes Instructions: Cellulitis Dc Prescriptions: Cephalexin [Keflex] 500 mg PO QID #40 capsule predniSONE [Deltasone] 60 mg PO DAILY 5 Days tablet Comments: Return if worsening or if you run a fever. Follow-up with your doctor on Friday.
[2017-09-27] MEDS ORDERED: predniSONE 20 MG TABLET PO STA (15:32)
[2017-09-27] MEDS ORDERED: cephALEXin 250 MG CAPSULE PO STA (15:32)
[2017-09-27 15:48] VITALS: BP 131/81
== END 2017-09-27 15:58 | disposition home or self-care (01) ==
LOC: ED 14:41
DX: L03.113 Cellulitis of right upper limb (principal); E03.9 Hypothyroidism, unspecified; I10 Essential (primary) hypertension; Z79.82 Long term (current) use of aspirin
CPT/HCPCS: 10060; 87070; 87181; 87205; 99283; A9270; J7512

== ENCOUNTER 2017-09-30 15:47 | Emergency (ER) | payer MEDICARE ==
[2017-09-30 16:12] VITALS: BP 125/74
--- NOTE | 2017-09-30 17:23 | ED Physician Documentation ---
PD HPI SKIN - Stated complaint Stated Complaint: ALLERGIC REACTION - Chief complaint Chief Complaint: Allergic Rx - History obtained from History obtained from: Patient - History of Present Illness Timing - onset: Yesterday Timing - details: Abrupt onset, Still present (started having redness and tenderness perirectal area yesterday. Has been on abx for arm infection for 3 days. The arm is improving but still mild redness. No general rash nor itching.) Location: Other (perirectal) Quality / character: Painful, Discolored (red), Swelling Associated symptoms: N/V/D (mild diarrhea since starting abx.) Contributing factors: Exposed to medication Similar symptoms before: Has not had sx before Recently seen: Not recently seen Review of Systems Constitutional: denies: Fever, Chills, Myalgias Nose: denies: Rhinorrhea / runny nose, Congestion Throat: denies: Sore throat Cardiac: denies: Chest pain / pressure, Palpitations Respiratory: denies: Dyspnea, Cough GI: reports: Diarrhea (loose stools for 2 days). denies: Nausea, Vomiting PD PAST MEDICAL HISTORY - Past Medical History Cardiovascular: Hypertension, Murmur Respiratory: Asthma, Sleep apnea, CPAP use Endocrine/Autoimmune: HyPOthyroidism GI: None : None HEENT: None Psych: None Musculoskeletal: Osteoarthritis Derm: None - Past Surgical History Past Surgical History: Yes General: Colonoscopy, Other Ortho: Spine surgery - Present Medications Home Medications: Ambulatory Orders Medication Instructions Recorded Confirmed Aspirin [Aspir 81] 81 mg PO DAILY 08/23/14 09/29/17 Glucosamine Sulfate Dipot Chlr 1,000 mg PO DAILY 08/23/14 09/29/17 [Glucosamine] Levothyroxine [Synthroid] 50 mcg PO DAILY 08/23/14 09/29/17 Loratadine [Claritin] 10 mg PO DAILY 08/23/14 09/29/17 Losartan [Cozaar] 50 mg PO BID 08/23/14 09/29/17 [place]-3 Fatty Acids/Fish Oil 2 tab PO DAILY 08/23/14 09/29/17 [[place] 3 1,000 mg Softgel] Ascorbic Acid [Vitamin C] 250 mg PO DAILY 03/06/17 09/29/17 Calcium Carbonate/Vitamin D3 1 each PO DAILY 03/06/17 09/29/17 [Calcium 500-Vit D3 200 Tablet] Multivit with Calcium,Iron,Min 1 each PO DAILY 03/06/17 09/29/17 [Multiple Vitamins For Women] Albuterol Sulfate [Proair Hfa 2 puffs INH Q4H PRN 03/27/17 09/29/17 Inhaler] Beclomethasone 80 Mcg [Qvar 80] 2 puffs INH BID 03/27/17 09/29/17 Ferrous Sulfate 325 mg PO DAILY 03/27/17 09/29/17 Fluticasone Propionate 2 spray NS DAILY 03/27/17 09/29/17 Saccharomyces Boulardii [Florastor] 250 mg PO DAILY 03/27/17 09/29/17 Temazepam 30 mg PO DAILY PM 03/27/17 09/29/17 Cyanocobalamin (Vitamin B-12) 1,000 mcg PO DAILY 03/31/17 09/29/17 [Vitamin B-12] Cephalexin [Keflex] 500 mg PO QID #40 capsule 09/27/17 09/29/17 predniSONE [Deltasone] 60 mg PO DAILY 5 Days tablet 09/27/17 09/29/17 Fluconazole [Diflucan] 150 mg PO ONCE #1 tablet 09/30/17 Nystatin 1 applic TP BID #15 cream..g. 09/30/17 - Allergies Allergies/Adverse Reactions: Allergies Allergy/AdvReac Type Severity Reaction Status Date / Time No Known Drug Allergies Allergy Verified 09/30/17 16:12 - Social History Does the pt smoke?: No Smoking Status: Never smoker Does the pt drink ETOH?: Yes Does the pt have substance abuse?: No - Immunizations Immunizations are current?: Yes - POLST Patient has POLST: No PD ED PE NORMAL - Vitals Vital signs reviewed: Yes - General General: Alert and oriented X 3, No acute distress, Well developed/nourished - HEENT HEENT: Pharynx benign - Neck Neck: Supple, no meningeal sign, No adenopathy - Abdomen Abdomen: Soft, Non tender - Rectal Rectal: Other (peirectal area with demarcated symmetric red, raised rash that is warm and tender c/w yeast infection. Mild stool debris perirectally which I cleanse off with peripad. ) - Derm Derm: Normal color, Warm and dry Results - Vitals Vitals: Oxygen O2 Source Room air PD MEDICAL DECISION MAKING - ED course Complexity details: considered differential (very red perirectal rash c/w yeast infection.), d/w patient Departure - Departure Disposition: 01 Home, Self Care Clinical Impression: Yeast dermatitis, Wound check, abscess Condition: Stable Record reviewed to determine appropriate education?: Yes Follow-Up: Sohail Kamara MD [Primary Care Provider] - Prescriptions: Fluconazole [Diflucan] 150 mg PO ONCE #1 tablet Nystatin 1 applic TP BID #15 cream..g. Comments: This looks like a yeast skin infection in the perirectal area. It would be a response to the antibiotics you are taking for your arm. Your arm is looking a lot better now but not completely so he would still need to continue the antibiotics. I would suggest; Stop the prednisone Decrease the cephalexin to 3 times a day (down from 4 times a day) Stop the oral antibiotic when the redness in the arm is all gone (likely 2-3 more days) Take an oral antifungal Diflucan again in 3 days Use nystatin antifungal cream in the perirectal area twice daily until the rash is improved which will likely be 3-4 days. Discharge Date/Time: 09/30/17 17:59
[2017-09-30] MEDS ORDERED: FLUCONAZOLE 100 MG TABLET PO STA (17:37)
== END 2017-09-30 17:59 | disposition home or self-care (01) ==
LOC: ED 15:47
DX: B37.89 Other sites of candidiasis (principal); L30.9 Dermatitis, unspecified; L02.91 Cutaneous abscess, unspecified; I10 Essential (primary) hypertension; E03.9 Hypothyroidism, unspecified; Z79.82 Long term (current) use of aspirin
CPT/HCPCS: 99283; A9270

== ENCOUNTER 2017-10-17 17:30 | Outpatient (CLI) | payer MEDICARE | END 2017-10-17 17:31 | disposition short-term general hospital (02) | LOC: EMS 17:30 | PROVIDERS: ATTEND Surgery | DX: R06.02 Shortness of breath (principal); R07.89 Other chest pain | CPT/HCPCS: A0425; A0427 ==

== ENCOUNTER 2017-10-28 11:38 | Outpatient (CLI) | payer MEDICARE | END 2017-10-28 11:39 | disposition home or self-care (01) | LOC: LAB.WCP 11:38 | PROVIDERS: ATTEND Family Medicine | DX: E87.1 Hypo-osmolality and hyponatremia (principal) | CPT/HCPCS: 83935; 84300 ==

== ENCOUNTER 2017-10-29 09:46 | Outpatient (CLI) | payer MEDICARE | END 2017-10-29 09:47 | disposition home or self-care (01) | LOC: LAB.WCP 09:46 | PROVIDERS: ATTEND Family Medicine | DX: E87.1 Hypo-osmolality and hyponatremia (principal) | CPT/HCPCS: 36415; 83930 ==

== ENCOUNTER 2017-11-26 08:00 | Outpatient (CLI) | payer MEDICARE ==
[2017-11-26 12:39] LABS: CALCIUM 9.2 mg/dL (8.5-10.3); CREATININE 0.7 mg/dL (0.4-1.0)
== END 2017-11-26 08:01 | disposition home or self-care (01) ==
LOC: LAB.WCP 08:00
PROVIDERS: ATTEND Family Medicine
DX: E87.1 Hypo-osmolality and hyponatremia (principal)
CPT/HCPCS: 36415; 80048

== ENCOUNTER 2017-11-28 09:32 | Outpatient (CLI) | payer MEDICARE ==
[2017-11-28] MEDS ORDERED: ALBUTEROL NEB 2.5 MG/3 ML INH ONE (11:00)
== END 2017-11-28 09:33 | disposition home or self-care (01) ==
LOC: RT 09:32
PROVIDERS: ATTEND Family Medicine
DX: R06.00 Dyspnea, unspecified (principal)
CPT/HCPCS: 94060; 94729

== ENCOUNTER 2018-01-15 09:30 | Outpatient (CLI) | payer MEDICARE | END 2018-01-15 09:31 | disposition home or self-care (01) | LOC: LAB.WCP 09:30 | PROVIDERS: ATTEND Family Medicine | DX: R19.7 Diarrhea, unspecified (principal) | CPT/HCPCS: 82274; 83630; 87045; 87046; 87177; 87209; 87493 ==

== ENCOUNTER 2018-02-28 16:14 | Outpatient (CLI) | payer MEDICARE | END 2018-02-28 16:15 | disposition EMS.NT | LOC: EMS 16:14 | PROVIDERS: ATTEND Surgery | DX: M25.522 Pain in left elbow (principal); V59.40XA Driver of pick-up truck or van injured in collision with unspecified motor vehicles in traffic accident, initial encounter; Y92.413 State road as the place of occurrence of the external cause ==

== ENCOUNTER 2018-03-26 09:02 | Day surgery (SDC) | payer MEDICARE ==
[2018-03-26] MEDS ORDERED: LACTATED RINGERS 1,000 ML IV ONE (09:57)
[2018-03-26] MEDS ORDERED: fentaNYL 250 MCG/5 ML VIAL IVP ONE (12:15)
[2018-03-26] MEDS ORDERED: MIDAZOLAM 2 MG/2 ML VIAL IVP ONE (12:15)
--- NOTE | 2018-03-26 12:35 | OPERATIVE REPORT ---
DATE OF SERVICE: 03/26/2018 Physician: Lucian Bustamante MD PREOPERATIVE DIAGNOSES: Surveillance colonoscopy after colectomy for carcinoma. POSTOPERATIVE DIAGNOSIS: Suboptimal colonoscopy, but no abnormality seen. PROCEDURE: Colonoscopy. INDICATIONS FOR PROCEDURE: The patient is a 69-year-old woman who had a hemicolectomy done for colon carcinoma in the past. She is here for surveillance colonoscopy. PROCEDURE IN DETAIL: The risks and benefits were explained to the patient. She agreed to the procedure. She was taken to the operating room, given sedation, and a timeout was performed. Everyone in the room agreed to the procedure. We advanced a well-lubricated colonoscope into the rectal vault and proceeded to the anastomosis. For whatever reason, he colon would not distend completely with insufflation. Therefore, our inspection was suboptimal. However, we did reach the anastomosis and examined the colon as much as we could. The prep was also suboptimal and it was difficult to make a complete inspection of all the surfaces of the colon; however, nothing major was seen and the scope was completely withdrawn after retroflexion at the anal verge. The patient tolerated the procedure well, was taken to recovery in stable condition. COMPLICATIONS: None. SPECIMEN: None. PLAN: Is for the patient to have another colonoscopy in 1-3 years. Ideally 1 year due to the suboptimal study. TD: 03/26/2018 12:26 MTDWalt
[2018-03-26 12:53] VITALS: BP 152/68
== END 2018-03-26 09:03 | disposition home or self-care (01) ==
LOC: SDS 09:02
PROVIDERS: ATTEND Surgery
PROC: 0DJD8ZZ Inspection of Lower Intestinal Tract, Via Natural or Artificial Opening Endoscopic (ICD-10-PCS; principal; 2018-03-26 10:30)
DX: Z12.11 Encounter for screening for malignant neoplasm of colon (principal); Z85.038 Personal history of other malignant neoplasm of large intestine; Z90.49 Acquired absence of other specified parts of digestive tract; Z87.891 Personal history of nicotine dependence
CPT/HCPCS: G0105; J3010; J7120

== ENCOUNTER 2018-05-21 14:37 | Outpatient (CLI) | payer MEDICARE ==
[2018-05-21 19:29] LABS: BASOPHILS # (AUTO) 0.1 10^3/uL (0.0-0.1); BASOPHILS % (AUTO) 1.3 %; HGB - HEMOGLOBIN 12.5 g/dL (12.0-16.0); LYMPHOCYTES # (AUTO) 0.6 10^3/uL (1.5-3.5); LYMPHOCYTES % (AUTO) 13.2 %; MEAN CORPUSCULAR HEMOGLOBIN 33.6 pg (27.0-31.0); MEAN CORPUSCULAR HGB CONC 33.7 g/dL (32.0-36.0); MEAN CORPUSCULAR VOLUME 99.7 fL (81.0-99.0); MEAN PLATELET VOLUME 7.6 fL (7.9-10.8); MONOCYTES # (AUTO) 0.4 10^3/uL (0.0-1.0); MONOCYTES % (AUTO) 7.7 %; NEUTROPHILS # (AUTO) 3.8 10^3/uL (1.5-6.6); NEUTROPHILS % (AUTO) 76.8 %; PLT - PLATELET COUNT 270 10^3/uL (130-450); RED BLOOD COUNT 3.72 10^6/uL (4.20-5.40); RED CELL DISTRIBUTION WIDTH 12.9 % (12.0-15.0); WHITE BLOOD COUNT 4.9 x10^3/uL (4.8-10.8)
[2018-05-21 19:47] LABS: BILIRUBIN,TOTAL 0.5 mg/dL (0.2-1.0); CREATININE 0.6 mg/dL (0.4-1.0); TOTAL PROTEIN 6.4 g/dL (6.7-8.2)
[2018-05-21 20:24] LABS: ALBUMIN 3.6 g/dL (3.2-5.5); ALBUMIN/GLOBULIN RATIO 1.3 (1.0-2.2)
[2018-05-21 20:47] LABS: FOLATE > 49.60 ng/mL (5.90 - >24.8)
== END 2018-05-21 23:59 | disposition home or self-care (01) ==
LOC: LAB.WCP 14:37
PROVIDERS: ATTEND Family Medicine
DX: R19.7 Diarrhea, unspecified (principal)
CPT/HCPCS: 36415; 80053; 82607; 82746; 85025

== ENCOUNTER 2018-05-22 08:00 | Outpatient (CLI) | payer MEDICARE | END 2018-05-22 23:59 | disposition home or self-care (01) | LOC: LAB.R 08:00 | PROVIDERS: ATTEND Family Medicine | DX: R19.7 Diarrhea, unspecified (principal) | CPT/HCPCS: 81599; 87045; 87046; 87329; 87493; 89055 ==

== ENCOUNTER 2018-11-16 08:00 | Outpatient (CLI) | payer MEDICARE ==
[2018-11-16 18:46] LABS: BASOPHILS # (AUTO) 0.1 10^3/uL (0.0-0.1); BASOPHILS % (AUTO) 1.1 %; EOSINOPHILS # (AUTO) 0.1 10^3/uL (0.0-0.7); EOSINOPHILS % (AUTO) 1.5 %; HGB - HEMOGLOBIN 12.3 g/dL (12.0-16.0); LYMPHOCYTES # (AUTO) 0.8 10^3/uL (1.5-3.5); LYMPHOCYTES % (AUTO) 12.1 %; MEAN CORPUSCULAR HEMOGLOBIN 32.5 pg (27.0-31.0); MEAN CORPUSCULAR HGB CONC 32.4 g/dL (32.0-36.0); MEAN CORPUSCULAR VOLUME 100.5 fL (81.0-99.0); MEAN PLATELET VOLUME 9.4 fL (7.9-10.8); MONOCYTES # (AUTO) 0.5 10^3/uL (0.0-1.0); MONOCYTES % (AUTO) 7.2 %; NEUTROPHILS # (AUTO) 5.2 10^3/uL (1.5-6.6); NEUTROPHILS % (AUTO) 77.8 %; PLT - PLATELET COUNT 312 10^3/uL (130-450); RED BLOOD COUNT 3.78 10^6/uL (4.20-5.40); RED CELL DISTRIBUTION WIDTH 13.2 % (12.0-15.0); WHITE BLOOD COUNT 6.6 x10^3/uL (4.8-10.8)
== END 2018-11-16 23:59 | disposition home or self-care (01) ==
LOC: LAB.WCP 08:00
PROVIDERS: ATTEND Family Medicine
DX: C18.2 Malignant neoplasm of ascending colon (principal); D64.9 Anemia, unspecified
CPT/HCPCS: 36415; 82378; 85025

== ENCOUNTER 2019-01-26 09:44 | Outpatient (CLI) | payer MEDICARE ==
[2019-01-26] MEDS ORDERED: GADOBUTROL 10 MMOL/10 ML VIAL ONE (10:35)
[2019-01-26] MEDS ORDERED: GADOBUTROL 10 MMOL/10 ML VIAL IVP ONE (12:05)
--- NOTE | 2019-01-26 13:09 | MRI Report ---
Reason: OSTEOPOROSIS, DEMENTIA Procedure Date: 01/26/2019 Accession Number: [id number] / [id number] Procedure: MRI - Brain W/WO CPT Code: FULL RESULT: EXAM: MRI BRAIN WITHOUT AND WITH CONTRAST EXAM DATE: 01/26/2019 10:30 AM. CLINICAL HISTORY: Dementia and forgetfulness. COMPARISON: None. TECHNIQUE: Multiplanar, multisequence T1-weighted and fluid-sensitive MR sequences of the brain were performed before and after administration of intravenous contrast. Sequences optimized for routine evaluation. Other: None. IV Contrast: 6 mL Gadavist. FINDINGS: The diffusion-weighted images are normal. There is no evidence of acute or subacute cerebral infarction. The corpus callosum is of normal size and configuration. The pituitary and sella are normal. The craniocervical junction is normal. There is mild mucosal thickening in the posterior left ethmoid complex. The remainder of the paranasal sinuses are normally aerated. The optic nerves demonstrate symmetric signal intensity and size. The bilateral parotid spaces exhibit normal signal intensity. The cerebral vascular flow voids are patent. There is enlargement of the lateral ventricles and the third ventricle. This appears to be somewhat out of proportion to the degree of sulcal enlargement. The calculated [place] ratio is elevated at 0.44. In the correct clinical setting this may reflect changes of normal pressure hydrocephalus. Other etiologies which can produce a similar radiographic appearance would include central volume loss. The T2* sequence is normal. There is no evidence of subacute or chronic hemorrhage. There is normal enhancement within the deep venous sinuses. There is normal enhancement within the brain parenchyma. There is on old lacunar infarction of the right centrum semiovale. There are periventricular, subcortical, and deep white matter T2 hyperintensities consistent with a mild to moderate degree of chronic small vessel ischemia. IMPRESSION: 1. There is no evidence of acute or subacute cerebral infarction. 2. There is enlargement of the lateral ventricles and the third ventricle which appears to be somewhat out of proportion to the degree of sulcal enlargement. The calculated [place] ratio is elevated at 0.44. In the correct clinical setting, this may reflect changes of normal pressure hydrocephalus. Recommend clinical correlation. Other etiologies which can produce a similar radiographic appearance would include central volume loss. 3. There is a mild to moderate degree of chronic small vessel ischemia. There is an old lacunar infarction of the right centrum semiovale. 4. There is no evidence of brain mass.
== END 2019-01-26 09:45 | disposition home or self-care (01) ==
LOC: DI 09:44
PROVIDERS: ATTEND Family Medicine
DX: F03.90 Unspecified dementia, unspecified severity, without behavioral disturbance, psychotic disturbance, mood disturbance, and anxiety (principal); M81.0 Age-related osteoporosis without current pathological fracture; G93.89 Other specified disorders of brain
CPT/HCPCS: 70553; A9585

== ENCOUNTER 2019-02-03 07:50 | Outpatient (CLI) | payer MEDICARE ==
--- NOTE | 2019-02-03 08:55 | Mammography Report ---
Reason: SCREENING MAMMO Procedure Date: 02/03/2019 Accession Number: [id number] / [id number] Procedure: MITCH - Screening Mammo Dig Bilat CPT Code: FULL RESULT: EXAM: Screening Mammo Dig Bilat DATE: 02/03/2019 8:17 AM CLINICAL HISTORY: Screening encounter. Family history of breast cancer in a sister at the age of 60. TECHNIQUE: (B) - Bilateral CC and MLO views were obtained. COMPARISON: 03/22/2016 through 04/06/2012. PARENCHYMAL PATTERN: (D) - The breast(s) demonstrate(s) heterogeneously dense fibroglandular parenchyma. FINDINGS: There are no suspicious masses, calcifications, or areas of distortion. IMPRESSION: Negative examination. BI-RADS category 1. RECOMMENDATION: (ANNUAL) - Recommend routine annual screening mammography. BI-RADS CATEGORY: (1) - Negative. STANDARD QUALIFYING STATEMENTS: 1. This examination was not reviewed with the aid of Computer-Aided Detection (CAD). 2. A negative or benign imaging report should not preclude biopsy if clinically suspicious findings are present. 3. Dense breasts may obscure an underlying neoplasm. 4. This examination was reviewed without the aid of 3D breast imaging (tomosynthesis).
== END 2019-02-03 07:51 | disposition home or self-care (01) ==
LOC: DI 07:50
PROVIDERS: ATTEND Family Medicine
DX: Z12.31 Encounter for screening mammogram for malignant neoplasm of breast (principal); Z80.3 Family history of malignant neoplasm of breast
CPT/HCPCS: 77067

== ENCOUNTER 2019-02-03 07:51 | Outpatient (CLI) | payer MEDICARE ==
--- NOTE | 2019-02-04 08:37 | DEXA Report ---
Reason: OSTEOPOROSIS Procedure Date: 02/03/2019 Accession Number: [id number] / [id number] Procedure: DEX - Dexa Forearm CPT Code: FULL RESULT: EXAM: Dexa Spine and/or Hip, Dexa Forearm DATE: 02/03/2019 8:15 AM CLINICAL HISTORY: OSTEOPOROSIS TECHNIQUE: Dual energy x-ray absorptiometry (DXA) was performed on a [employer] System. Regions measured are the AP Spine, femoral neck, and if needed forearm. COMPARISON: 05/07/2016 In accordance with the International Society for Clinical Densitometry (ISCD) guidelines, data from previous exams may be reanalyzed using current recommendations and techniques. This is done to allow a more accurate basis for comparison with the current study. FINDINGS: The data for the lumbar spine is as follows: BMD (g/cm/cm) T-SCORE Z-SCORE REGION L1 0.934 -1.6 0.4 L2 1.228 0.2 2.2 L3 1.148 -0.4 1.6 L4 1.178 -0.2 1.8 TOTAL 1.119 -0.5 1.5 NOTE: All evaluable vertebrae are used for classification The data for the hip is as follows: BMD (g/cm/cm) T-SCORE Z-SCORE REGION Neck 0.650 -2.8 -0.6 TOTAL 0.603 -3.2 -1.1 NOTE: The femoral neck or total proximal femur, whichever is lowest, is used for classification. The data for the left forearm is as follows: BMD (g/cm/cm) T-SCORE Z-SCORE REGION 1/3 0.630 -2.8 -0.2 NOTE: The 33% radius of the nondominant forearm is used for classification. DXA RESULTS SUMMARY: Spine SCAN DATE AGE BMD CHANGE VS CHANGE VS PREVIOUS PREVIOUS % [birth year]2019 [age] 1.119 0.033* 3.0* 05/07/2016 75.7 1.086 * Denotes significant change at the 95% confidence level. Denotes dissimilar scan types or analysis methods. DXA RESULTS SUMMARY: Hip SCAN DATE AGE BMD CHANGE VS CHANGE VS PREVIOUS PREVIOUS % [birth year]2019 78.4 0.603 -0.066* -9.9* 05/07/2016 76.7 0.669 * Denotes significant change at the 95% confidence level. Denotes dissimilar scan types or analysis methods. IMPRESSION: THE WHO CLASSIFICATION BASED ON THE INTERNATIONAL REFERENCE STANDARD IS OSTEOPOROSIS. THE FRACTURE RISK IS HIGH. RECOMMENDATION: Patients with diagnosis of osteoporosis or osteopenia should have regular bone mineral density assessment. For those eligible for Medicare, routine testing is allowed once every 2 years. Testing frequency can be increased for patients who have rapidly progressing disease or for those who are receiving medical therapy to restore bone mass. COMMENT: World Health Organization (WHO) definitions for osteoporosis and osteopenia: NORMAL BMD: T-score at -1.0 or higher, fracture risk is low OSTEOPENIA BMD: T-score between -1.0 and -2.5, fracture risk is increased. OSTEOPOROSIS BMD: T-score at -2.5 or lower, fracture risk is high. National Osteoporosis Foundation recommends: 1. Obtain adequate dietary calcium (at least 1200 mg per day) and vitamin D (400-800 international units per day). 2. Participate, as appropriate, in regular weightbearing and muscle-strengthening exercise. 3. Avoid tobacco use and reduce alcohol and caffeine intake. 4. For more detailed information see the website at www.NOF.org.
== END 2019-02-03 07:52 | disposition home or self-care (01) ==
LOC: DI 07:51
PROVIDERS: ATTEND Family Medicine
DX: M81.0 Age-related osteoporosis without current pathological fracture (principal)
CPT/HCPCS: 77080; 77081

== ENCOUNTER 2019-05-20 14:09 | Outpatient (CLI) | payer MEDICARE ==
--- NOTE | 2019-05-21 04:41 | XRAY Report ---
Reason: RIGHT KNEE PAIN Procedure Date: 05/20/2019 Accession Number: [id number] / [id number] Procedure: WCP - Knee 3 View RT CPT Code: Final Report FULL RESULT: EXAM: RIGHT KNEE RADIOGRAPHY EXAM DATE: 05/20/2019 02:09 PM. CLINICAL HISTORY: RIGHT KNEE PAIN. COMPARISON: None. TECHNIQUE: 3 views. FINDINGS: Bones: No fracture seen. No acute osseous abnormality. Joints: No dislocation seen. Mild joint space narrowing in all 3 compartments. No definite joint effusion. Soft Tissues: Chondrocalcinosis in the menisci. IMPRESSION: 1. No acute abnormality seen. 2. Mild degenerative joint disease with chondrocalcinosis in the menisci. RADIA
--- NOTE | 2019-05-21 04:42 | XRAY Report ---
Reason: RIGHT SHOULDER PAIN Procedure Date: 05/20/2019 Accession Number: [id number] / [id number] Procedure: WCP - Shoulder 2 View RT CPT Code: Final Report FULL RESULT: EXAM: RIGHT SHOULDER RADIOGRAPHY EXAM DATE: 05/20/2019 02:09 PM. CLINICAL HISTORY: RIGHT SHOULDER PAIN. COMPARISON: SHOULDER 2 VIEW RT 04/20/2018 1:50 PM. TECHNIQUE: 2 views. FINDINGS: Bones: Osteopenia. No acute fracture seen. Joints: No dislocation. Severe degenerative joint disease in the glenohumeral joint. Mild to moderate degenerative joint disease in the acromioclavicular joint. Soft tissues: Grossly unremarkable. IMPRESSION: 1. Osteopenia. No acute fracture or dislocation seen. 2. Severe DJD in the glenohumeral joint and mild to moderate in the acromioclavicular joint. RADIA
== END 2019-05-20 23:59 | disposition home or self-care (01) ==
LOC: DI.WCP 14:09
PROVIDERS: ATTEND Family Medicine
DX: M19.011 Primary osteoarthritis, right shoulder (principal); M85.811 Other specified disorders of bone density and structure, right shoulder; M17.11 Unilateral primary osteoarthritis, right knee; M11.261 Other chondrocalcinosis, right knee

== ENCOUNTER 2019-06-18 09:39 | Outpatient (CLI) | payer MEDICARE ==
[2019-06-18] MEDS ORDERED: IOVERSOL 320 50 ML VIAL ONE (10:11)
[2019-06-18] MEDS ORDERED: IOVERSOL 320 100 ML VIAL IVP ONE ×2 (10:11→11:24)
[2019-06-18 10:13] LABS: CREATININE 0.7 mg/dL (0.4-1.0)
[2019-06-18] MEDS ORDERED: IOVERSOL 320 50 ML VIAL PO ONE (11:24)
--- NOTE | 2019-06-20 02:03 | CT Report ---
Reason: COLON CA Procedure Date: 06/18/2019 Accession Number: [id number] / [id number] Procedure: CT - Abdomen/Pelvis W CPT Code: Final Report FULL RESULT: EXAM: CT ABDOMEN AND PELVIS EXAM DATE: 06/18/2019 11:23 AM. CLINICAL HISTORY: Colon cancer. COMPARISONS: ABDOMEN/PELVIS W/ 02/03/2017 11:01 AM. TECHNIQUE: Routine helical CT imaging was performed through the abdomen and pelvis. IV contrast: 90 mL Optiray 320. Enteric contrast: Yes. Reconstructions: Coronal and sagittal. In accordance with CT protocol optimization, one or more of the following dose reduction techniques were utilized for this exam: automated exposure control, adjustment of mA and/or KV based on patient size, or use of iterative reconstructive technique. FINDINGS: Lung Bases: Unremarkable. Liver: Normal. No masses. Gallbladder/Bile Ducts: Unremarkable. Spleen: Normal. Pancreas: Normal. Adrenal Glands: Normal. Kidneys: Low lying right kidney in the transverse lie. No renal masses or obstructive changes seen. Peritoneal Cavity/Bowel: There has been right hemicolectomy and distal colorectal resection. There is no bowel obstruction. No obvious bowel wall thickening. No fluid collections or mesenteric lymphadenopathy. No inflammatory changes. Pelvic Organs: Normal. The bladder and visualized pelvic organs are within normal limits. Vasculature: No aneurysms or other significant abnormality. Bones: Left convexity lumbar scoliosis. There are multilevel disk with degenerative changes. Bilateral hip osteoarthritis noted. No acute or destructive bone lesions. Other: None. IMPRESSION: No evidence of disease recurrence. RADIA
--- NOTE | 2019-06-20 02:03 | CT Report ---
Reason: COLON CA Procedure Date: 06/18/2019 Accession Number: [id number] / [id number] Procedure: CT - CHEST W CPT Code: Final Report FULL RESULT: EXAM: CT CHEST EXAM DATE: 06/18/2019 11:23 AM. CLINICAL HISTORY: Colon cancer. COMPARISONS: ABDOMEN/PELVIS W/ 06/18/2019 11:17 AM. TECHNIQUE: Routine helical CT imaging was performed through the chest. IV contrast: 90 mL Optiray 320. Reconstructions: Coronal and sagittal. In accordance with CT protocol optimization, one or more of the following dose reduction techniques were utilized for this exam: automated exposure control, adjustment of mA and/or KV based on patient size, or use of iterative reconstructive technique. FINDINGS: Lungs/Pleura: Small focus of scarring or atelectasis in the inferior lingula. No suspicious lung nodules. No confluent lung consolidation. No pleural effusion or pneumothorax. Mediastinum: Normal heart size. No pericardial effusion. Moderate coronary artery calcification seen. No pathologically enlarged mediastinal, hilar or axillary lymph nodes. No aortic aneurysm seen. Bones: Right glenohumeral joint osteoarthritis. No destructive bone lesion seen. There is a chronic T4 compression fracture. Visualized Abdomen: Please refer to abdomen CT report. Other: None. IMPRESSION: 1. No evidence of metastatic disease. RADIA
== END 2019-06-18 09:40 | disposition home or self-care (01) ==
LOC: DI 09:39
PROVIDERS: ATTEND Internal Medicine Hematology & Oncology
DX: Z85.030 Personal history of malignant carcinoid tumor of large intestine (principal)
CPT/HCPCS: 36415; 71260; 74177; 82565; Q9967